=== PATIENT | female | born 2000 | race African-American/Black ===

== ENCOUNTER 2019-03-20 20:59 | Emergency (ER) | payer OTHER ==
[2019-03-20 21:29] VITALS: BP 130/65; PULSE 75; TEMP 98.5; BMI 37.1
[2019-03-20] MEDS ORDERED: LIDOCAINE HCL 1%, 10 MG/ML (20ML VIAL) ONE (21:36)
[2019-03-20] MEDS ORDERED: CEPHALEXIN MONOHYDRATE 500 MG CAPSULE (UD) PO ONE (22:52)
--- NOTE | 2019-03-20 22:56 | PDOC ---
*Physical Exam - Vital Signs Last Vital Signs Temp Pulse Resp BP Pulse Ox 98.5 F 75 18 130/65 99 03/20/19 21:01 03/20/19 21:01 03/20/19 21:01 03/20/19 21:01 03/20/19 21:01 ED Progress Note - Progress Note Progress Note: Care of this patient received from Dr. Schilling. 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 While using a sharp knife preparing food, the patient sustained a flap type laceration of the radial aspect of the distal phalanx. Injury is nearly full avulsion of tissue with flap being held on by thin slip of skin. Flap, however seems viable on exam. Left index finger x-ray was performed to evaluate for bony injury: Preliminary interpretationno evidence of fracture or other bony injury. Dr. Schilling had performed a digital anesthesia block on the finger prior to my assuming care of the patient. Patient had excellent anesthesia of the distal phalanx of the left index finger. Wound cleansed with Hibiclens/ethanol solution and sterilely draped. Wound was irrigated with 30 mL of sterile normal saline. Laceration was closed using 8 interrupted sutures of 6-0 nylon. Skin flap was slightly pale at completion of the repair. Bacitracin ointment and sterile dressing was applied followed by a protective gauze tube dressing. Patient tolerated procedure well Because of the complex nature of this injury, patient will be started on Keflex 500 mg 3 times a day for 5 days. First dose given now in the ER. Patient was advised that the flap may not ultimately viable but would act as a biological dressing at the very least. She will require a wound check in the next few days. She should not work until that time. Work documentation will be provided for the patient. Case was discussed with Dr. Hand by phone: He will see the patient in his office within the next 2 to 3 days. Meanwhile, the patient has increased pain or swelling in the finger, she should return to the ER Discharge - Discharge Information Problems reviewed: Yes Clinical Impression/Diagnosis: Finger laceration Qualifiers: Encounter type: initial encounter Finger: index finger Damage to nail status: with damage Foreign body presence: without foreign body Laterality: left Qualified Code(s): S61.311A - Laceration without foreign body of left index finger with damage to nail, initial encounter Condition: Stable Disposition: HOME - Additional Discharge Information Prescriptions: Cephalexin [Keflex] 500 mg PO TID #15 capsule - Follow up/Referral Referrals: ON STAFF,NOT [Primary Care Provider] - Iker Hand MD [Staff Physician] - Call tomorrow - Patient Discharge Instructions Patient Printed Discharge Instructions: How to Care for a Laceration After Repair Additional Instructions: Keep original dressing in place and as dry as possible until seen by Dr. Hand Elevate left hand at heart level or above as much as possible Tylenol/Motrin/Aleve as needed for pain Keflex 500mg 3X day for [address] Hand's office tomorrow AM to arrange followup appointment within 2- 3 days No work until seen by Dr Hand Return to ER if you have persistent pain or finger becomes swollen - Post Discharge Activity Work/Back to School Note: Back to Work
[2019-03-20] MEDS ORDERED: CEPHALEXIN MONOHYDRATE 500 MG CAPSULE (UD) ONE (23:18)
--- NOTE | 2019-04-01 13:33 | PDOC ---
Documentation entered by Carisa Jenkins SCRIBE, acting as scribe for Casey Hernandez MD. Casey Hernandez MD: This documentation has been prepared by the baldevibeGregory Lincy, SCRIBE, under my direction and personally reviewed by me in its entirety. I confirm that the documentation accurately reflects all work, treatment, procedures, and medical decision making performed by me. History of Present Illness - General Chief Complaint: Injury Stated Complaint: CUT LEFT MID FINGER AT HOME ON KNIFE Time Seen by Provider: 03/20/19 21:02 History Source: Patient Exam Limitations: No Limitations - History of Present Illness Initial Comments: 03/20/19 21:39 The patient is a 18-year-old female with no reported past medical history who presents to the emergency department with a cut to the left middle finger. The patient reports she was cutting chicken when she accidentally cut her left middle finger. The patient reports incident occurs around 8:00-8:15 pm. Denies numbness, tingling, or loss of sensation. Allergies: sesame seed and shellfish derived. Review of system: CONSTITUTIONAL: Absent: fever, no chills, no fatigue EYES: Absent: visual changes ENT: Absent: ear pain, no sore throat CARDIOVASCULAR: Absent: chest pain, no palpitations RESPIRATORY: Absent: cough, no SOB GI: Absent: abdominal pain, no nausea, no vomiting, no constipation, no diarrhea GENITOURINARY: Absent: dysuria, no frequency, no hematuria MUSKULOSKELETAL: +cut to left middle finger. Absent: back pain, no arthralgia, no myalgia SKIN: Absent: rash NEURO: Absent: headache. Physical exam: GENERAL: Well developed, well nourished. Awake and alert. No acute distress. EXTREMITY: Partial avulsion of the left 3rd finger, approximately 5 mm in diameter, consisting of the skin and soft tissue only. Involves sliver of the nail edge, Good coverage of the bone, no exposed bone. Digital block with 1% lidocaine plain administered for pain control and to facilitate repair X-ray ordered Signed out to Dr. Espinosa 10 PM for further evaluation and definitive treatment. Past History - Past Medical History Allergies/Adverse Reactions: Allergies Allergy/AdvReac Type Severity Reaction Status Date / Time sesame seed Allergy Intermediate Swelling Verified 03/24/19 19:49 shellfish derived Allergy Intermediate Swelling Verified 03/24/19 19:49 Home Medications: Ambulatory Orders Cephalexin [Keflex] 500 mg PO TID #15 capsule 03/20/19 *Physical Exam - Vital Signs Last Vital Signs Temp Pulse Resp BP Pulse Ox 98.5 F 75 18 130/65 99 03/20/19 21:01 03/20/19 21:01 03/20/19 21:01 03/20/19 21:01 03/20/19 21:01 ED Treatment Course - RADIOLOGY Radiology Studies Ordered: Category Date Time Status FINGER(S) LEFT [RAD] Stat Radiology 03/20/19 21:49 Completed - Medications Given in the ED: ED Medications Discontinued Medications Generic Name Dose Route Start Last Admin Trade Name Trisha PRN Reason Stop Dose Admin Cephalexin HCl 500 mg 03/20/19 22:52 03/20/19 23:17 Keflex - PO 03/20/19 22:53 500 mg ONCE ONE Administration Discharge - Discharge Information Problems reviewed: Yes Clinical Impression/Diagnosis: Finger laceration Qualifiers: Encounter type: initial encounter Finger: index finger Damage to nail status: with damage Foreign body presence: without foreign body Laterality: left Qualified Code(s): S61.311A - Laceration without foreign body of left index finger with damage to nail, initial encounter Condition: Stable Disposition: HOME - Additional Discharge Information Prescriptions: Cephalexin [Keflex] 500 mg PO TID #15 capsule - Follow up/Referral Referrals: Iker Hand MD [Staff Physician] - Call tomorrow ON STAFF,NOT [Primary Care Provider] - - Patient Discharge Instructions Patient Printed Discharge Instructions: How to Care for a Laceration After Repair Additional Instructions: Keep original dressing in place and as dry as possible until seen by Dr. Hand Elevate left hand at heart level or above as much as possible Tylenol/Motrin/Aleve as needed for pain Keflex 500mg 3X day for [address] Hand's office tomorrow AM to arrange followup appointment within 2- 3 days No work until seen by Dr Hand Return to ER if you have persistent pain or finger becomes swollen - Post Discharge Activity Work/Back to School Note: Back to Work
== END 2019-03-20 23:21 | disposition home or self-care (01) ==
LOC: SUPCPDRO 20:59 → FER 20:59
PROC: 0HQGXZZ Repair Left Hand Skin, External Approach (ICD-10-PCS; principal; 2019-03-20)
DX: S61.213A Laceration without foreign body of left middle finger without damage to nail, initial encounter (principal); W26.0XXA Contact with knife, initial encounter; Y93.G1 Activity, food preparation and clean up; Y92.89 Other specified places as the place of occurrence of the external cause; Y99.0 Civilian activity done for income or pay; Z91.013 Allergy to seafood; Z91.018 Allergy to other foods
CPT/HCPCS: 73140-TC-LT-FY; 99283-25

== ENCOUNTER 2019-03-24 19:48 | Emergency (ER) | payer OTHER ==
[2019-03-24 19:54] VITALS: BP 133/82; PULSE 82; TEMP 97.6; BMI 36.0
--- NOTE | 2019-03-24 20:35 | PDOC ---
Documentation entered by Lucy Patel SCRIBE, acting as scribe for Briseida Anderson MD. Briseida Anderson MD: This documentation has been prepared by the baldevibe, Lucy Patel SCRIBE, under my direction and personally reviewed by me in its entirety. I confirm that the documentation accurately reflects all work, treatment, procedures, and medical decision making performed by me. Suture Removal/Wound Check HPI - History of Present Illness Chief Complaint: Wound Stated Complaint: WOUND CHECK History Source: Yes: Patient Exam Limitations: Yes: No Limitations Treated at: [facility] ED - Previous ED Treatment Type of procedure performed on last visit: Yes: Laceration Repair - Onset of Previous Treatment Comment:: 03/24/19 20:07 Assessment and plan: This is a 18-year-old female who comes in for a wound check. Patient had sutures placed about 3 days ago. Patient did have a small amount of gauze that was stuck to the wound that was Otherwise wound is healing well there is no evidence of infection. Patient discharged told to return 1 week after the sutures were placed for suture removal Past History - Travel Traveled outside of the country in the last 30 days: No Close contact w/someone who was outside of country & ill: No - Past Medical History Allergies/Adverse Reactions: Allergies Allergy/AdvReac Type Severity Reaction Status Date / Time sesame seed Allergy Intermediate Swelling Verified 03/24/19 19:49 shellfish derived Allergy Intermediate Swelling Verified 03/24/19 19:49 Home Medications: Ambulatory Orders Cephalexin [Keflex] 500 mg PO TID #15 capsule 03/20/19 COPD: No - Psycho Social/Smoking Cessation Hx Smoking History: Current every day smoker Have you smoked in the past 12 months: Yes Information on smoking cessation initiated: Yes Hx Alcohol Use: No Drug/Substance Use Hx: No Suture Removal/Wound Check PE - Physical Exam Laceration/Wound Check Symptoms: reports: Improved Current Severity Level: None Maximum Severity Level: None Pain Localization: None Location of Laceration/Wound: right: Finger (Middle finger) Pain Radiation: None *Review of Systems - Review of Systems Constitutional: No: Symptoms Reported, See HPI, Chills, Diaphoresis, Fever, Loss of Appetite, Malaise, Night Sweats, Weakness, Weight Stable, Unintentional Wgt. Loss, Unexplained wgt Loss, Other HEENTM: No: Symptoms Reported, See HPI, Eye Pain, Blurred Vision, Tearing, Recent change in vision, Double Vision, Cataracts, Ear Pain, Ocular Prothesis, Ear Discharge, Nose Pain, Nose Congestion, Tinnitus, Nose Bleeding, Hearing Loss , Throat Pain, Throat Swelling, Mouth Pain, Dental Problems, Difficulty Swallowing, Mouth Swelling, Other Respiratory: No: Symptoms reported, See HPI, Cough, Orthopnea, Shortness of Breath, SOB with Exertion, SOB at Rest, Stridor, Wheezing, Productive cough, Hemoptysis, Other Cardiac (ROS): No: Symptoms Reported, See HPI, Chest Pain, Edema, Irregular Heart Rate, Lightheadedness, Palpitations, Syncope, Chest Tightness, Other ABD/GI: No: Symptoms Reported, See HPI, Abdominal Distended, Abd. Pain w/ defecation, Blood Streaked Bowels, Constipated, Diarrhea, Difficulty Swallowing , Nausea, Poor Appetite, Poor Fluid Intake, Rectal Bleeding, Vomiting, Indigestion, Abdominal cramping, Tarry Stools, Other Musculoskeletal: No: Symptoms Reported, See HPI, Back Pain, Gout, Joint Pain, Joint Swelling, Muscle Pain, Muscle Weakness, Neck Pain, Joint Stiffness, Other Integumentary: No: Symptoms Reported, See HPI, Bruising, Change in Color, Change in Hair/Nails, Dryness, Erythema, Flushing, Lesions, Lumps, Pallor, Pruritus, Rash, Sweating, Other Neurological: No: Symptoms reported, See HPI, Headache, Numbness, Paresthesia, Pre-Existing Deficit, Seizure, Tingling, Tremors, Weakness, Unsteady Gait, Ataxia, Dizziness, Other Psychiatric: No: Anxiety, Depression, Frequent Crying, Stressors, Sleep Pattern Change, Emotional Problems, Mood Swings, Change in Appetite, Other Endocrine: No: Symptoms Reported, See HPI, Excessive Sweating, Flushing, Intolerance to Cold, Intolerance to Heat, Increased Hunger, Increased Thirst, Increased Urine, Unexplained Weight Gain, Unexplained Weight Loss, Change in Weight, Other *Physical Exam - Vital Signs Last Vital Signs Temp Pulse Resp BP Pulse Ox 97.6 F 82 16 133/82 100 03/24/19 19:51 03/24/19 19:51 03/24/19 19:51 03/24/19 19:51 03/24/19 19:51 Discharge - Discharge Information Problems reviewed: Yes Clinical Impression/Diagnosis: Visit for wound check Condition: Stable - Admission No - Follow up/Referral - Patient Discharge Instructions Additional Instructions: Clean the area once a day with a little peroxide reapply some bacitracin and can cover with a Band-Aid if working in a dirty environment. Keep the finger dry. Return to the emergency department immediately with ANY new, persistent or worsening symptoms. Continue any medications as previously prescribed by your physician. You should follow up with your primary doctor as soon as possible regarding today's emergency department visit. . Please make sure your doctor reviews the results of your emergency evaluation. Thank you for coming to the Emergency Department today for your care. It was a pleasure to see you today. Please note that your evaluation is INCOMPLETE until you follow-up with your doctor. - Post Discharge Activity
== END 2019-03-24 20:42 | disposition home or self-care (01) ==
LOC: FER 19:48
DX: Z48.00 Encounter for change or removal of nonsurgical wound dressing (principal)
CPT/HCPCS: 99281-25

== ENCOUNTER 2022-01-08 22:44 | Emergency (ER) | payer OTHER ==
[2022-01-08 22:52] VITALS: BP 142/94; PULSE 88; RESP 18; TEMP 98; BMI 37.3
== END 2022-01-09 00:33 | disposition home or self-care (01) ==
LOC: FER 22:44
DX: S82.401A Unspecified fracture of shaft of right fibula, initial encounter for closed fracture (principal); W10.9XXA Fall (on) (from) unspecified stairs and steps, initial encounter
CPT/HCPCS: 73610-TC-RT-FY; 99283-25